=== PATIENT | female | born 1935 | race Caucasian/White ===

== ENCOUNTER 2021-07-17 14:38 | Inpatient (IN) | payer MEDICARE, OTHER ==
[~2021-07-17] VITALS: Ht 157.5 cm; Wt 62.9 kg
[~2021-07-17 14:38] MED LIST: AMLODIPINE-BEN1 EAC1 PO; BACTRIM DS TAB1 EACH PO; BENTYL10 MG PO; CATAPRES0.1 MG PO; FIBER LAXATIVE625 MG PO; FLORASTOR250 MG PO; LEVOTHYROXINE50 MCG PO; MELOXICAM15 MG PO; METRONIDAZOLE500 MG PO; OMEPRAZOLE40 MG PO; TRIAMTERENE-HC1 EAC1 PO
[2021-07-17 18:15] LABS: BASOPHIL 0.3 % (0-2); EOSINOPHIL 3.3 % (0-7); HCT 34.2 % (37.0-47.0); HGB 10.9 g/dl (12.5-16.0); LYMPHOCYTE 5.5 % (15-48); MCH 27.5 pg (25.0-31.0); MCHC 31.9 g/dL (32.0-36.0); MCV 86.1 fL (78.0-100.0); NEUTROPHIL 84.4 % (41-80); NRBC 0; PLT 291 K/uL (150-400); RBC 3.97 M/uL (4.20-5.40); RDW 16.5 % (11.5-14.0); WBC 14.4 K/uL (4.0-10.5)
[2021-07-17 18:23] LABS: INR 1.06 (0.9-1.2); PROTHROMBIN TIME 13.2 SECONDS (11.8-13.4); PTT 29.1 SECONDS (24.4-34.7)
[2021-07-17 18:32] LABS: ALBUMIN 3.2 g/dL (3.4-5.0); BILIRUBIN - TOTAL 0.2 mg/dL (0.2-1.0); CREATININE 1.76 mg/dL (0.51-0.95); GLOBULIN (CALCULATION) 4.3 g/dL; TOTAL PROTEIN 7.5 g/dL (6.4-8.2)
[2021-07-17 18:43] LABS: POTASSIUM 6.1 mmol/L (3.5-5.1)
[2021-07-18 00:06] LABS: BUN/CREAT RATIO (CALC) 29.7 RATIO; CREATININE 1.58 mg/dL (0.51-0.95); POTASSIUM 5.4 mmol/L (3.5-5.1)
[2021-07-18] MEDS ORDERED: VITAMIN B-650 MG PO (01:49)
[2021-07-18] MEDS ORDERED: IMODIUM2 MG PO (01:49)
[2021-07-18] MEDS ORDERED: VITAMIN D3125 MC2 PO (01:50)
--- NOTE | 2021-07-18 02:28 | NUR ---
HANDOFF REPORT GIVEN FROM CHRISTIAN HAMM TO NISHA HAMM ON 07/18/21 AT 0215 AM
[2021-07-18 06:31] LABS: BASOPHIL 0.4 % (0-2); EOSINOPHIL 5.5 % (0-7); HCT 30.4 % (37.0-47.0); HGB 9.6 g/dl (12.5-16.0); LYMPHOCYTE 6.9 % (15-48); MCH 27.4 pg (25.0-31.0); MCHC 31.6 g/dL (32.0-36.0); MCV 86.9 fL (78.0-100.0); MONOCYTE 7.3 % (0-12); NEUTROPHIL 79.4 % (41-80); NRBC 0; PLT 229 K/uL (150-400); RDW 16.6 % (11.5-14.0); WBC 10.6 K/uL (4.0-10.5)
[2021-07-18 06:40] LABS: ALBUMIN 2.6 g/dL (3.4-5.0); BILIRUBIN - TOTAL 0.2 mg/dL (0.2-1.0); BUN/CREAT RATIO (CALC) 30.9 RATIO; CREATININE 1.39 mg/dL (0.51-0.95); GLOBULIN (CALCULATION) 3.6 g/dL; MAGNESIUM 1.4 mg/dL (1.8-2.4); PHOSPHORUS 3.5 mg/dL (2.6-4.7); POTASSIUM 5.6 mmol/L (3.5-5.1); TOTAL PROTEIN 6.2 g/dL (6.4-8.2)
== END 2021-07-18 17:15 | disposition other institution (70) | DRG 300 ==
LOC: FER 14:38 → FTCU 21:51
PROVIDERS: Nurse Practitioner; Physician Assistant; ADMIT Internal Medicine
DX: I82.411 Acute embolism and thrombosis of right femoral vein (principal); N17.9 Acute kidney failure, unspecified; E87.1 Hypo-osmolality and hyponatremia; E87.5 Hyperkalemia; I82.431 Acute embolism and thrombosis of right popliteal vein; Z20.822 Contact with and (suspected) exposure to COVID-19; I49.5 Sick sinus syndrome; E03.9 Hypothyroidism, unspecified; I12.9 Hypertensive chronic kidney disease with stage 1 through stage 4 chronic kidney disease, or unspecified chronic kidney disease; N18.9 Chronic kidney disease, unspecified; K21.9 Gastro-esophageal reflux disease without esophagitis; Z96.642 Presence of left artificial hip joint; Z90.49 Acquired absence of other specified parts of digestive tract; Z90.710 Acquired absence of both cervix and uterus; Z98.890 Other specified postprocedural states; Z88.0 Allergy status to penicillin; Z88.5 Allergy status to narcotic agent; Z88.7 Allergy status to serum and vaccine; Z79.899 Other long term (current) drug therapy
CPT/HCPCS: 36415; 80048; 80053; 83036; 83605; 83735; 84100; 84145; 84484; 85025; 85610; 85730; 93005; 93971; J1650; U0002

== ENCOUNTER 2021-11-28 17:46 | Emergency (ER) | payer MEDICARE, OTHER ==
[~2021-11-28 17:46] MED LIST changes: +IMODIUM2 MG PO; +VITAMIN B-650 MG PO; +VITAMIN D3125 MC2 PO
[2021-11-28 20:23] LABS: BASOPHIL 0.6 % (0-2); EOSINOPHIL 1.7 % (0-7); HCT 34.9 % (37.0-47.0); HGB 11.2 g/dl (12.5-16.0); LYMPHOCYTE 12.7 % (15-48); MCH 29.1 pg (25.0-31.0); MCHC 32.1 g/dL (32.0-36.0); MCV 90.6 fL (78.0-100.0); MONOCYTE 5.7 % (0-12); MPV 8.7 fL (6.0-9.5); NEUTROPHIL 78.7 % (41-80); NRBC 0; PLT 338 K/uL (150-400); RBC 3.85 M/uL (4.20-5.40); RDW 13.7 % (11.5-14.0); WBC 9.3 K/uL (4.0-10.5)
[2021-11-28 20:40] LABS: CREATININE 1.21 mg/dL (0.51-0.95); POTASSIUM 4.3 mmol/L (3.5-5.1)
== END 2021-11-28 22:44 | disposition home or self-care (01) ==
LOC: FER 17:46
PROVIDERS: Internal Medicine
DX: M25.561 Pain in right knee (principal); I12.9 Hypertensive chronic kidney disease with stage 1 through stage 4 chronic kidney disease, or unspecified chronic kidney disease; N18.30 Chronic kidney disease, stage 3 unspecified; Z86.718 Personal history of other venous thrombosis and embolism; Z79.01 Long term (current) use of anticoagulants; Z79.899 Other long term (current) drug therapy; Z88.0 Allergy status to penicillin
CPT/HCPCS: 36415; 80048; 85025; 85379

== ENCOUNTER 2021-11-30 16:52 | Emergency (ER) | payer MEDICARE, OTHER ==
[2021-11-30 17:53] LABS: BASOPHIL 0.7 % (0-2); EOSINOPHIL 1.5 % (0-7); HCT 34.7 % (37.0-47.0); HGB 11.2 g/dl (12.5-16.0); LYMPHOCYTE 13.6 % (15-48); MCH 29.6 pg (25.0-31.0); MCHC 32.3 g/dL (32.0-36.0); MCV 91.8 fL (78.0-100.0); MONOCYTE 5.6 % (0-12); MPV 8.9 fL (6.0-9.5); NEUTROPHIL 78.3 % (41-80); NRBC 0; PLT 367 K/uL (150-400); RBC 3.78 M/uL (4.20-5.40); WBC 10.5 K/uL (4.0-10.5)
[2021-11-30 18:17] LABS: ALBUMIN 3.4 g/dL (3.4-5.0); BILIRUBIN - TOTAL 0.2 mg/dL (0.2-1.0); BUN/CREAT RATIO (CALC) 22.4 RATIO; CREATININE 1.47 mg/dL (0.51-0.95); GLOBULIN (CALCULATION) 3.5 g/dL; TOTAL PROTEIN 6.9 g/dL (6.4-8.2)
[2021-11-30 18:54] LABS: BILIRUBIN NEGATIVE (NEGATIVE); BLOOD 2+ Ery/uL (NEGATIVE); COLOR YELLOW (YELLOW); GLUCOSE (U) NORMAL (NORMAL); LEUKOCYTES 3+ Leu/uL (NEGATIVE); NITRITE NEGATIVE (NEGATIVE); PROTEIN NEGATIVE (NEGATIVE); UROBILINOGEN 0.2 mg/dL (0.2-1.0)
[2021-11-30 19:00] LABS: CLARITY HAZY (CLEAR)
[2021-11-30 19:07] LABS: BACTERIA TRACE; SQUAMOUS EPITHELIAL CELLS RARE
[2021-11-30] MEDS ORDERED: PRINIVIL10 MG PO (21:52)
[2021-11-30] MEDS ORDERED: NORVASC 10MG TA10 MG PO (21:54)
== END 2021-11-30 22:28 | disposition home or self-care (01) ==
LOC: FER 16:52
PROVIDERS: Emergency Medicine
DX: I12.9 Hypertensive chronic kidney disease with stage 1 through stage 4 chronic kidney disease, or unspecified chronic kidney disease (principal); N18.30 Chronic kidney disease, stage 3 unspecified; K21.9 Gastro-esophageal reflux disease without esophagitis; E03.9 Hypothyroidism, unspecified; Z20.822 Contact with and (suspected) exposure to COVID-19; Z93.3 Colostomy status; Z88.0 Allergy status to penicillin; Z88.1 Allergy status to other antibiotic agents; Z91.018 Allergy to other foods; Z79.899 Other long term (current) drug therapy; Z79.890 Hormone replacement therapy
CPT/HCPCS: 36415; 70450; 71045; 80053; 81001; 84484; 85025; 93005; U0002